=== PATIENT | female | born 1990 | race Two or more races ===

== ENCOUNTER 2017-03-22 09:35 | Emergency (ER) | payer OTHER ==
--- NOTE | 2017-03-22 10:01 | ER Document Report ---
ED Medical Screen (RME) - General Chief Complaint: Vag Bleeding, +preg <12wks Stated Complaint: VAGINAL BLEEDING Time Seen by Provider: 03/22/17 09:56 Notes: Patient says she is and having vaginal bleeding. Her last menstrual cycle was at the end of January and this is her second . She has not had any bleeding during the until now. She went for a routine office appointment on Sunday and had a vaginal ultrasound and was told that she is approximately 5 weeks . It was not until she got home after that visit that she started having the vaginal bleeding. Having mild pelvic cramping. No other symptoms or complaints. TRAVEL OUTSIDE OF THE [place] IN LAST 30 DAYS: No - Related Data Allergies/Adverse Reactions: shellfish derived Allergy (Verified 03/22/17 09:38) Past Medical History - General Last Menstrual Period: 01/29/17 Renal/ Medical History: Denies: Hx Peritoneal Dialysis Physical Exam - Vital signs Vitals: Temp Pulse Resp BP Pulse Ox 97.9 F 69 16 110/71 99 03/22/17 09:39 03/22/17 09:39 03/22/17 09:39 03/22/17 09:39 03/22/17 09:39 Course - Vital Signs Vital signs: Temp Pulse Resp BP Pulse Ox 97.9 F 69 16 110/71 99 03/22/17 09:39 03/22/17 09:39 03/22/17 09:39 03/22/17 09:39 03/22/17 09:39
[2017-03-22 10:24] LABS: ABSOLUTE BASOPHILS # (AUTO) 0.1 10^3/uL (0.0-0.2); ABSOLUTE EOSINOPHILS # (AUTO) 0.4 10^3/uL (0.0-0.6); ABSOLUTE LYMPHOCYTES (AUTO) 1.4 10^3/uL (0.5-4.7); ABSOLUTE MONOCYTES (AUTO) 0.4 10^3/uL (0.1-1.4); ABSOLUTE NEUT (AUTO) 3.2 10^3/uL (1.7-8.2); BASOPHILS % (AUTO) 1.1 % (0-2); HEMOGLOBIN 12.2 g/dL (12.0-15.5); HGB HCT DIFFERENCE -0.4; LYMPHOCYTES % (AUTO) 25.7 % (13-45); MEAN CORPUSCULAR HEMOGLOBIN 28.6 pg (27.0-33.4); MEAN CORPUSCULAR VOLUME 87 fl (80-97); MONOCYTES % (AUTO) 7.8 % (3-13); RED BLOOD COUNT 4.27 10^6/uL (3.72-5.28); RED CELL DISTRIBUTION WIDTH 12.7 % (11.5-14.0); SEGMENTED NEUTROPHILS % (AUTO) 58.4 % (42-78); WHITE BLOOD COUNT 5.5 10^3/uL (4.0-10.5)
--- NOTE | 2017-03-22 12:04 | ER Document Report ---
ED GI/ - General Mode of Arrival: Ambulatory Information source: Patient TRAVEL OUTSIDE OF THE [place] IN LAST 30 DAYS: No - HPI Patient complains to provider of: Vaginal bleeding - spotting, Vaginal pain - cramping Onset: Other - 2 days ago Location: Vaginal Vaginal bleeding (Compared to normal period): Spotting Associated symptoms: Other - see notes above <FARHEEN ALDRIDGE - Last Filed: 03/22/17 15:48> <LENCHO METCALF - Last Filed: 03/24/17 10:22> - General Chief Complaint: Vag Bleeding, +preg <12wks Stated Complaint: VAGINAL BLEEDING Time Seen by Provider: 03/22/17 11:35 Notes: 26 year old female (5 weeks; ) with no history of anemia presents to the ED complaining of constant vaginal cramping and spotting that started 2 days ago after having an ultrasound performed by [facility]. Patient states that this was the first routine checkup for her . Patient reports using pads and has noticed blood, but they are not soaked. Patient denies being lightheaded or dizzy. Patient has a follow up appointment with [facility] in 3 weeks. (FARHEEN ALDRIDGE) - Related Data Allergies/Adverse Reactions: shellfish derived Allergy (Verified 03/22/17 09:38) Past Medical History - General Information source: Patient Last Menstrual Period: 01/29/17 - Social History Smoking Status: Never Smoker Chew tobacco use (# tins/day): No Frequency of alcohol use: None Drug Abuse: None Family History: Reviewed & Not Pertinent Patient has suicidal ideation: No Patient has homicidal ideation: No Renal/ Medical History: Denies: Hx Peritoneal Dialysis Surgical Hx: Negative - Immunizations Hx Diphtheria, Pertussis, Tetanus Vaccination: Yes <FARHEEN ALDRIDGE - Last Filed: 03/22/17 15:48> Review of Systems - Review of Systems Constitutional: No symptoms reported EENT: No symptoms reported Cardiovascular: No symptoms reported. denies: Dizziness, Lightheaded Respiratory: No symptoms reported Gastrointestinal: No symptoms reported Genitourinary: No symptoms reported Female Genitourinary: See HPI, - 5 weeks , Vaginal bleeding - spotting, Other - Vaginal cramping Musculoskeletal: No symptoms reported Skin: No symptoms reported Hematologic/Lymphatic: No symptoms reported Neurological/Psychological: No symptoms reported -: Yes All other systems reviewed and negative <ALDRIDGE,FARHEEN - Last Filed: 03/22/17 15:48> Physical Exam - General General appearance: Alert In distress: None - HEENT Head: Normocephalic, Atraumatic Eyes: Normal Extraocular movements intact: Yes Pupils: PERRL - Respiratory Respiratory status: No respiratory distress Breath sounds: Normal - Cardiovascular Rhythm: Regular Heart sounds: Normal auscultation - Abdominal Inspection: Normal Distension: No distension Tenderness: Nontender - Back Back: Normal - Extremities General upper extremity: Normal inspection, Normal ROM General lower extremity: Normal inspection, Normal ROM - Neurological Neuro grossly intact: Yes Cognition: Normal Orientation: AAOx4 [place] Coma Scale Eye Opening: Spontaneous [place] Coma Scale Verbal: Oriented Spencer Coma Scale Motor: Obeys Commands [place] Coma Scale Total: 15 Speech: Normal - Psychological Associated symptoms: Normal affect, Normal mood - Skin Skin Temperature: Warm Skin Moisture: Dry Skin Color: Normal <FARHEEN ALDRIDGE - Last Filed: 03/22/17 15:48> Course - Laboratory Result Diagrams: 03/22/17 10:00 <FARHEEN ALDRIDGE - Last Filed: 03/22/17 15:48> - Laboratory Result Diagrams: 03/22/17 10:00 <LENCHO METCALF - Last Filed: 03/24/17 10:22> - Re-evaluation Re-evalutation: 03/22/17 13:08 Patient presents to the emergency department with a chief complaint of vaginal spotting and cramping. She was seen on Sunday for her first visit had an ultrasound in the office cannot remember who saw her and was told that she was about 5 weeks . This is her second no complications with previous she denies any pain or cramping. Says it is just spotting but not actively bleeding. On examination she is not tachycardic or hypotensive well-appearing nontoxic no acute abdominal tenderness guarding rebound or rigidity. Ultrasound shows her to be 6 weeks and 2 days with yolk sac. At this point discussed with her threatened miscarriage. Not actively bleeding no concerns for ectopic . She is Rh+. I had discharged her call [facility] for follow-up appointment in 2-3 days and discussed reasons for ED return sooner (LENCHO METCALF) - Vital Signs Vital signs: Temp Pulse Resp BP Pulse Ox 98 F 70 16 111/72 99 03/22/17 13:25 03/22/17 13:25 03/22/17 13:25 03/22/17 13:25 03/22/17 13:25 - Laboratory Laboratory results interpreted by me: 03/22/17 03/22/17 10:00 10:00 Eosinophils % 7.0 H Beta HCG, Quant 5616.10 H Discharge <FARHEEN ALDRIDGE - Last Filed: 03/22/17 15:48> <LENCHO METCALF - Last Filed: 03/24/17 10:22> - Discharge Clinical Impression: Threatened miscarriage Condition: Stable Disposition: HOME, SELF-CARE Additional Instructions: Threatened Miscarriage You have been evaluated for a possible miscarriage. At this time, there is no indication that a miscarriage will occur. Most women with your symptoms will go on to have a perfectly normal baby. However, careful observation will be necessary. A miscarriage occurs when the fetus is abnormal. There is no medicine or treatment for it. You should rest in bed until the symptoms have resolved. Do not douche or have sex for at least a week, or until OK'd by the doctor. Call the doctor or return for re-examination if there is an increase in bleeding or cramping, or passage of tissue. Follow up with [facility] in 2-3 days return for increasing worsening or new symptoms Scribe Attestation: 03/22/17 13:07 I personally performed the services described in the documentation reviewed the documentation recorded by my scribe in my presence and it accurately and completely records my words and actions (LENCHO METCALF) Scribe Documentation - Scribe Written by Mynor:: Mynor Guzman, 03/22/2017 1210 acting as scribe for :: Albert <FARHEEN ALDRIDGE - Last Filed: 03/22/17 15:48>
[2017-03-22 13:35] VITALS: BP 111/72
== END 2017-03-22 13:25 | disposition home or self-care (01) ==
LOC: ER 09:35
DX: O20.0 Threatened abortion (principal); O26.891 Other specified pregnancy related conditions, first trimester; R10.2 Pelvic and perineal pain; Z3A.01 Less than 8 weeks gestation of pregnancy; Z98.890 Other specified postprocedural states; Z91.013 Allergy to seafood
CPT/HCPCS: 36415; 76817; 84702; 85025; 86900; 86901; 99284